=== PATIENT | female | born 1945 | race Two or more races ===

== ENCOUNTER 2022-11-19 14:07 | Emergency (ER) | payer OTHER ==
[~2022-11-19] VITALS: Ht 157.5 cm; Wt 63.5 kg
[2022-11-19] MEDS ORDERED: ZOLOFT100 MG PO (15:13)
[2022-11-19] MEDS ORDERED: RAZADYNE ER16 MG PO (15:13)
[2022-11-19] MEDS ORDERED: TENORMIN100 M1 PO (15:14)
[2022-11-19] MEDS ORDERED: SINEMET 25-1001 EACH PO (15:14)
[2022-11-19] MEDS ORDERED: CLONAZEPAM1 MG PO (15:14)
[2022-11-19] MEDS ORDERED: WELLBUTRIN SR100 MG PO (15:14)
[2022-11-19 16:40] LABS: HEMATOCRIT 38.6 % (36.0-45.00); MEAN CORPUSCULAR HEMOGLOBIN 28.8 pg (27.00-32.0); MEAN CORPUSCULAR HGB CONC 33.5 g/dl (32.0-36.0); PLATELET COUNT 198 K/uL (150-450); RED CELL DISTRIBUTION WIDTH 15.8 % (11.5-14.5)
[2022-11-19 16:56] LABS: INR 1.09; PARTIAL THROMBOPLASTIN TIME 25.9 SECONDS (22.0-34.0); PROTHROMBIN TIME 11.4 SECONDS (9.0-11.5)
[2022-11-19 17:01] LABS: ALBUMIN 3.7 gm/dL (3.4-5.0); BILIRUBIN TOTAL 0.53 mg/dL (0.3-1.2); CALCIUM 9.3 mg/dL (8.5-10.1); CREATININE SERUM 1.09 mg/dL (0.55-1.02); GFR 48.55; GLOBULINA 3.4 G/DL (2.4-3.5); POTASSIUM 3.4 mEq/L (3.5-5.1); TOTAL PROTEIN 7.1 gm/dL (6.4-8.2)
[2022-11-19 18:07] LABS: URINE APPEARANCE Cloudy; URINE BILIRRUBIN Negative (NEGATIVE); URINE BLOOD Negative; URINE COLOR Dark Yellow; URINE GLUCOSE Negative (NEGATIVE); URINE LEUKOCYTE Trace; URINE NITRATE Negative; URINE PROTEIN Trace (NEGATIVE)
[2022-11-19 18:10] LABS: URINE BACTERIA 1027.9 uL (0.0-1933); URINE EPITHELIAL CELLS 47.7 uL (0.0-38.8); URINE RBC 37.7 uL (0.0-20.8); URINE WBC 14.6 uL (0.0-23.2)
[2022-11-19 18:21] LABS: URINE CRYSTALS FEW /HPF
[2022-11-19] MEDS ORDERED: PEPCID AC20 MG PO (19:23)
[2022-11-19] MEDS ORDERED: DUI500 PO (19:24)
[2022-11-19] MEDS ORDERED: ZOFRAN8 MG PO (19:24)
== END 2022-11-19 20:08 | disposition home or self-care (01) ==
LOC: ER 14:07
PROVIDERS: Emergency Medicine
DX: K29.70 Gastritis, unspecified, without bleeding (principal); K21.9 Gastro-esophageal reflux disease without esophagitis; I10 Essential (primary) hypertension; G20.A1 Parkinson's disease without dyskinesia, without mention of fluctuations; F41.8 Other specified anxiety disorders
CPT/HCPCS: 36415; 96365; 96366; 99284; J2405; J7042